=== PATIENT | male | born 1990 | race Caucasian/White ===

== ENCOUNTER 2018-05-25 19:08 | Emergency (ER) | payer MEDICAID ==
[~2018-05-25] VITALS: Ht 172.7 cm; Wt 77.1 kg
[2018-05-25] MEDS ORDERED: IV NORMAL SALINE 1000ML BAG 1,000 ML IV ONE (19:45)
[2018-05-25 20:22] LABS: BASO % 0 % (0-3); EOS # 0.2 x10^3/uL (0.0-0.7); EOS % 1 % (0-3); HEMATOCRIT 44.8 % (39.0-53.0); HEMOGLOBIN 15.7 g/dL (13.0-17.5); LYMPH # 1.4 x10^3/uL (1.0-4.8); LYMPH % 12 % (24-48); MEAN CORPUSCULAR HEMOGLOBIN 32 pg (25-35); MEAN CORPUSCULAR HGB CONC 35 g/dL (31-37); MEAN CORPUSCULAR VOLUME 93 fL (79-100); MONO # 0.7 x10^3/uL (0.0-1.1); MONO % 6 % (0-9); NEUT # 9.2 x10^3uL (1.8-7.7); NEUT % 80 % (31-73); PLATELET COUNT 223 x10^3/uL (140-400); RED BLOOD COUNT 4.85 x10^6/uL (4.30-5.70); RED CELL DISTRIBUTION WIDTH 13.5 % (11.5-14.5); WHITE BLOOD COUNT 11.5 x10^3/uL (4.0-11.0)
[2018-05-25 20:33] LABS: BARBITURATES NEG (NEG); BENZODIAZEPINES NEG (NEG); CANNABINOIDS NEG (NEG); COCAINE NEG (NEG); METHADONE NEG (NEG); OPIATES NEG (NEG); PHENCYCLIDINE NEG (NEG)
[2018-05-25 20:34] LABS: GFR 88.3; POTASSIUM 3.6 mmol/L (3.5-5.1)
[2018-05-25 20:34] LABS: AMPHETAMINE/METHAMPHETAMINE NEG (NEG)
[2018-05-25 20:39] LABS: ALBUMIN 3.8 g/dL (3.4-5.0); ALBUMIN/GLOBULIN RATIO 1.2 (1.0-1.7); MAGNESIUM 2.3 mg/dL (1.8-2.4); TOTAL BILIRUBIN 0.2 mg/dL (0.2-1.0); TOTAL PROTEIN 7.1 g/dL (6.4-8.2)
[2018-05-25] MEDS ORDERED: ORPHENADRINE CITRATE 60 MG/2 ML VIAL. IV ONE (21:30)
[2018-05-25] MEDS ORDERED: KETOROLAC 15 MG/ML VIAL. IV ONE (21:30)
[2018-05-25] MEDS ORDERED: NAPR-514 PO (21:55)
[2018-05-25] MEDS ORDERED: ORPH100T PO (21:55)
--- NOTE | 2018-05-25 21:56 | PHYS DOC ---
Past Medical History Past Medical History: Bipolar, Depression, Seizure, Other Additional Past Medical Histor: PTSD Past Surgical History: Appendectomy, Other Additional Past Surgical Histo: RIGHT LEG RANI PLACEMENT Additional Information: Former Alcohol Use: None Drug Use: None Adult General Chief Complaint Chief Complaint: SEIZURE HPI HPI 28-year-old male presents via EMS with report of breakthrough seizure partially 45 minutes to one hour ago.family reports seizure last approximately 10-15 minutes. Patient does have a history of prior seizures for which she is currently taking Keppra and Trileptal. reports compliance with his medications. Patient reports neurologist recently increased dosing on 2017. Patient unsure when last seizure was prior to this episode. Girlfriend reports she witnessed the seizure. she reports she was on the couch and ended up laying him onto his side. Denies any head trauma. Patient does report some headache currently as well as left shoulder pain. Patient does report history of prior dislocation of left shoulder. Review of Systems Review of Systems Constitutional: Denies fever or chills [] Eyes: Denies change in visual acuity, redness, or eye pain [] HENT: Denies nasal congestion or sore throat [] Respiratory: Denies cough or shortness of breath [] Cardiovascular: denies chest pain or palpitations GI: Denies abdominal pain, nausea, vomiting, or diarrhea [] : Denies dysuria or hematuria [] Musculoskeletal: Denies back pain; reports left shoulder pain Integument: Denies rash or skin lesions [] Neurologic: reports headache and seizure-like activity Complete systems were reviewed and found to be within normal limits, except as documented in this note. Current Medications Current Medications Current Medications Medications (Trade) Dose Ordered Sig/Thomas Start Time Stop Time Status Last Admin Dose Admin Ketorolac Tromethamine (Toradol 15mg Vial) 15 mg 1X ONCE 05/25/18 21:30 05/25/18 21:33 DC 05/25/18 21:50 15 MG Orphenadrine Citrate (Norflex) 60 mg 1X ONCE 05/25/18 21:30 05/25/18 21:33 DC 05/25/18 21:49 60 MG Sodium Chloride 1,000 ml @ 1,000 mls/hr 1X ONCE 05/25/18 19:45 05/25/18 20:44 DC 05/25/18 19:52 1,000 MLS/HR Allergies Allergies Allergies Coded Allergies Type Severity Reaction Last Updated Verified Fish Containing Products Allergy Intermediate 05/25/18 Yes risperidone Allergy Intermediate 05/25/18 Yes tomato Allergy Intermediate 05/25/18 Yes Physical Exam Physical Exam Constitutional: Well developed, well nourished, no acute distress, non-toxic appearance. [] HENT: Normocephalic, atraumatic, oropharynx moist, no tongue laceration noted Eyes: PERRL, EOMI, conjunctiva normal, no discharge. [] Neck: Normal range of motion, no midline tenderness, supple, no stridor. [] Cardiovascular: Heart rate regular rhythm, no murmur [] Lungs & Thorax: Bilateral breath sounds clear to auscultation [] Abdomen: Soft, no tenderness Skin: Warm, dry, no erythema, no rash. [] Back: No midline tenderness, no CVA tenderness. [] Extremities: Mild tenderness with ROM of left shoulder, no deformity, CR < 2 sec , radial pulses +2/4 bilaterally, no edema. [] Neurologic: Alert and oriented X 3, normal motor function, normal sensory function, no focal deficits noted. [] Psychologic: Affect normal, judgement normal, mood normal. [] Current Patient Data Vital Signs Vital Signs Date Time Temp Pulse Resp B/P (MAP) Pulse Ox O2 Delivery O2 Flow Rate FiO2 05/25/18 22:05 86 98 05/25/18 19:08 98.6 18 127/79 (95) Room Air 98.6 Lab Values Laboratory Tests Test 05/25/18 20:10 05/25/18 20:16 White Blood Count 11.5 x10^3/uL (4.0-11.0) H Red Blood Count 4.85 x10^6/uL (4.30-5.70) Hemoglobin 15.7 g/dL (13.0-17.5) Hematocrit 44.8 % (39.0-53.0) Mean Corpuscular Volume 93 fL (79-100) Mean Corpuscular Hemoglobin 32 pg (25-35) Mean Corpuscular Hemoglobin Concent 35 g/dL (31-37) Red Cell Distribution Width 13.5 % (11.5-14.5) Platelet Count 223 x10^3/uL (140-400) Neutrophils (%) (Auto) 80 % (31-73) H Lymphocytes (%) (Auto) 12 % (24-48) L Monocytes (%) (Auto) 6 % (0-9) Eosinophils (%) (Auto) 1 % (0-3) Basophils (%) (Auto) 0 % (0-3) Neutrophils # (Auto) 9.2 x10^3uL (1.8-7.7) H Lymphocytes # (Auto) 1.4 x10^3/uL (1.0-4.8) Monocytes # (Auto) 0.7 x10^3/uL (0.0-1.1) Eosinophils # (Auto) 0.2 x10^3/uL (0.0-0.7) Basophils # (Auto) 0.0 x10^3/uL (0.0-0.2) Sodium Level 142 mmol/L (136-145) Potassium Level 3.6 mmol/L (3.5-5.1) Chloride Level 106 mmol/L (98-107) Carbon Dioxide Level 27 mmol/L (21-32) Anion Gap 9 (6-14) Blood Urea Nitrogen 13 mg/dL (8-26) Creatinine 1.0 mg/dL (0.7-1.3) Estimated GFR (Cockcroft-Gault) 88.3 BUN/Creatinine Ratio 13 (6-20) Glucose Level 93 mg/dL (70-99) Lactic Acid Level 2.3 mmol/L (0.4-2.0) H Calcium Level 9.0 mg/dL (8.5-10.1) Magnesium Level 2.3 mg/dL (1.8-2.4) Total Bilirubin 0.2 mg/dL (0.2-1.0) Aspartate Amino Transferase (AST) 28 U/L (15-37) Alanine Aminotransferase (ALT) 35 U/L (16-63) Alkaline Phosphatase 58 U/L (46-116) Total Protein 7.1 g/dL (6.4-8.2) Albumin 3.8 g/dL (3.4-5.0) Albumin/Globulin Ratio 1.2 (1.0-1.7) Urine Opiates Screen Neg (NEG) Urine Methadone Screen Neg (NEG) Urine Barbiturates Neg (NEG) Urine Phencyclidine Screen Neg (NEG) Urine Amphetamine/Methamphetamine Neg (NEG) Urine Benzodiazepines Screen Neg (NEG) Urine Cocaine Screen Neg (NEG) Urine Cannabinoids Screen Neg (NEG) Urine Ethyl Alcohol Neg (NEG) Laboratory Tests 05/25/18 20:10 Laboratory Tests 05/25/18 20:10 EKG EKG @1945 NSR at 86bpm, nonspecific t wave inversion III, J point elevation V2 Radiology/Procedures Radiology/Procedures PROCEDURE: SHOULDER 2+V LEFT Examination: SHOULDER 2+V LEFT History: pain s/p seizure Comparison/Correlation: None Findings: Total 3 images of the left shoulder were obtained. Acromioclavicular and glenohumeral joint relationships are normal. There are at least 2 smoothly marginated calcific densities lateral to the greater tuberosity and these are of indeterminate significance. No conclusive fracture. Impression: No conclusive acute fracture. Consider interval follow-up evaluation if clinically warranted. Calcific densities lateral to the greater tuberosity are of indeterminate significance. Electronically signed by: Dao Zazueta MD (05/25/2018 10:02 PM) [facility] Course & Med Decision Making Course & Med Decision Making Pertinent Labs and Imaging studies reviewed. (See chart for details) Patient presents with history of present illness physical exam concerning for breakthrough seizure. Patient does report compliance with his medication which was recently increased by his neurologist. Patient neurologically intact. No signs of trauma appreciated. Labs obtained and post chart. Lactic acid elevated which is attributed to seizure activity. IVF hydration given. patient also complains of left shoulder pain. No obvious deformity appreciated. X-ray obtained without acute fracture or dislocation. Sling applied for comfort with instructions to do shoulder circles 10 times in each direction several times a day to prevent a frozen shoulder. Patient stable for discharge with outpatient follow-up with PCP/neurologist/orthopedist. Orthopedic referral provided.Discussed findings and plan with patient and family, who acknowledge understanding and agreement. [employer] voice recognition software utilized. Fashion Project Disclaimer Fashion Project Disclaimer This electronic medical record was generated, in whole or in part, using a voice recognition dictation system. Departure Departure Impression: Primary Impression: Breakthrough seizure Additional Impression: Left shoulder strain Disposition: 01 HOME, SELF-CARE Condition: STABLE Referrals: UNKNOWN PCP NAME (PCP) MICK DANIELS MD Patient Instructions: Seizure, Adult, [id number], Shoulder Sprain Additional Instructions: Please call and make an appointment with your neurologist in the next 2-3 days. You must refrain from operating a motor vehicle until you have been seizure free for 6 months or until cleared by your doctor. Please continue to take your medication as prescribed by your physician. Scripts Orphenadrine Citrate (ORPHENADRINE CITRATE) 100 Mg Tablet.er 1 TAB PO BID PRN for MUSCLE PAIN, #14 TAB Prov: MEL HASKINS DO 05/25/18 Naproxen (NAPROXEN) 500 Mg Tablet 1 TAB PO BID PRN for PAIN, #20 TAB 0 Refills Prov: MEL HASKINS DO 05/25/18 Problem Qualifiers Additional Impression: Left shoulder strain Encounter type: initial encounter Qualified Codes: S46.912A - Strain of unspecified muscle, fascia and tendon at shoulder and upper arm level, left arm , initial encounter MEL HASKINS DO May 25, 2018 21:56
[2018-05-25 22:05] VITALS: BP 115/74
--- NOTE | 2018-05-25 22:05 | RAD ---
Examination: SHOULDER 2+V LEFT History: pain s/p seizure Comparison/Correlation: None Findings: Total 3 images of the left shoulder were obtained. Acromioclavicular and glenohumeral joint relationships are normal. There are at least 2 smoothly marginated calcific densities lateral to the greater tuberosity and these are of indeterminate significance. No conclusive fracture. Impression: No conclusive acute fracture. Consider interval follow-up evaluation if clinically warranted. Calcific densities lateral to the greater tuberosity are of indeterminate significance. Electronically signed by: Dao Zazueta MD (05/25/2018 10:02 PM) [facility]
--- NOTE | 2018-05-26 01:56 | EKG ---
[facility] [address] [place] [address] Test Date: 2018-05-25 Test Time: 19:45:05 Pat Name: EH MACKENZIE Department: Room: Gender: M Home Care Chaplain: : 1990 Requested By: MEL HASKINS Order Number: [id number] Reading MD: Derik Lemons MD Measurements Intervals [place] Rate: 86 P: 56 WA: 152 QRS: 55 QRSD: 96 T: 13 QT: 334 QTc: 402 Interpretive Statements SINUS RHYTHM Electronically Signed On 05-27-2018 11:43:17 CDT by Derik Lemons MD
== END 2018-05-25 22:10 | disposition home or self-care (01) ==
LOC: EDBD 19:08 → ER 19:08
DX: R56.9 Unspecified convulsions (principal); F31.9 Bipolar disorder, unspecified; F43.10 Post-traumatic stress disorder, unspecified; Z91.013 Allergy to seafood; Z88.8 Allergy status to other drugs, medicaments and biological substances; Z91.018 Allergy to other foods
CPT/HCPCS: 36415; 73030; 80053; 80307; 83605; 83735; 85025; 93005; 96374; 96375; 99285; J1885; J2360; J7030; G0479